=== PATIENT | female | born 1995 | race Asian ===

== ENCOUNTER 2017-03-15 17:09 | Emergency (ER) | payer OTHER ==
[2017-03-15 17:21] VITALS: BP 124/77; PULSE 57; RESP 16; TEMP 97.9; O2SAT 97
--- NOTE | 2017-03-15 17:56 | EDPHY ---
H & P Time Seen by Provider: 03/15/17 17:15 HPI/ROS: This patient complains of left some pain without acute trauma. She describes a slight pressure in the left thumb feeling like it needs to "crack ". She describes current discomfort is 1/10 but peak intensity 5/10 earlier in the day. She had partial relief from Aleve and notes no other exacerbating factors. 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 She also does a lot of texting. She wonders if she may have overused her thumb. She drove herself here by private vehicle for further evaluation. ROS: Constitutional: No fevers or other complaints Neuro: No numbness or tingling the affected thumb Cardiovascular: No pallor or other discoloration to the affected hand or thumb. Integumentary: No skin rash to the affected hand. 5 point ROS is otherwise negative. Smoking Status: Never smoked Physical Exam: Physical Exam Vital signs are normal. General: No acute distress Eyes: Pupils equal and react to light. Extraocular motions are intact. Lungs: No respiratory distress. Cardiac: Brisk capillary refill is intact throughout. Extremities: Left hand-normal except for minimal tenderness to the region of the thenar eminence that extends to the dorsum of the 1st metacarpal. She has no tenderness more distally to the thumb no swelling or ecchymosis. No laxity with ligamentous stress testing the affected thumb. Also no increase in pain with ligamentous stress testing. Skin: No rash or pallor. Neuro: Alert with no sensorimotor deficits in the affected hand. Initial differential diagnosis: Bony abnormality, muscle strain, tenosynovitis Constitutional: Initial Vital Signs Temperature (C) 36.6 C 03/15/17 17:19 Heart Rate 57 L 03/15/17 17:19 Respiratory Rate 16 03/15/17 17:19 Blood Pressure 124/77 H 03/15/17 17:19 O2 Sat (%) 97 03/15/17 17:19 O2 Delivery Mode Room Air Allergies/Adverse Reactions: Penicillins Allergy (Verified 03/15/17 17:23) Home Medications: Medication Instructions Recorded Bcp 03/15/17 Lexapro 03/15/17 MDM/Departure - MDM Diagnostics: Thumb x-ray: Negative for abnormalities by my interpretation Imaging: I viewed and interpreted images myself ED Course/Re-evaluation: Discussion: Patient has no significant clinical findings associated with her thumb and no radiographic abnormalities. I think that she has muscle strain to the region of the thenar eminence associated with the thumb. I counseled her regarding this. For comfort we placed her in a Velcro thumb spica I advised her to use for 3-5 days and then remove. She is also instructed to gently stretch the thumb each day. She will take [id number] analgesics as needed for discomfort. She will follow up with primary care physician for any ongoing symptoms. - Depart Disposition: Home, Routine, Self-Care Clinical Impression: Strain of thumb, left Condition: Good Instructions: Muscle Strain (ED) Additional Instructions: Diagnosis: Thumb strain Plan: Continue ibuprofen Tylenol for discomfort as needed Thumb splint for the next 3-7 days for comfort. Remove this has ear thumb symptoms improved. And removed at night. Be sure to stretcher thumb each day ongoing this to vent from getting too stiff Return for any significant worsening despite the treatment plan. Referrals: ARASELI ELLIS MD [Other] - As per Instructions
== END 2017-03-15 18:15 | disposition home or self-care (01) ==
LOC: CED 17:09
DX: S66.912A Strain of unspecified muscle, fascia and tendon at wrist and hand level, left hand, initial encounter (principal); X58.XXXA Exposure to other specified factors, initial encounter
CPT/HCPCS: 73140-PO; L3807